=== PATIENT | female | born 1950 | race Caucasian/White ===

== ENCOUNTER → 2016-12-28 | Outpatient (CLI) | payer BC, MEDICARE ==
[~2016-12-28] MED LIST: HYDR-7 PO; META800T88 PO; [UNRECOGNIZED DRUG - CODE] PO; [UNRECOGNIZED DRUG - CODE] PO
--- NOTE | 2016-12-29 08:22 | DI ---
Indication: ITS.REASON: M25.552 PAIN IN LEFT HIP PROCEDURE: HIP LEFT 2 VIEW: Encounter: Initial Comparison: None Findings: There is no acute fracture, dislocation or malalignment identified. Mild axial joint space narrowing in the hip without osteophyte formation. Impression: No acute osseous abnormality. .
== END ==
LOC: IMA 17:15
PROVIDERS: ATTEND Family Medicine
DX: M25.552 Pain in left hip (principal)

== ENCOUNTER → 2017-01-01 | Outpatient (CLI) | payer BC, MEDICARE ==
--- NOTE | 2017-01-01 09:40 | DI ---
Indication: ITS.REASON: M54.5 LOW BACK PAIN PROCEDURE: MRI LUMBAR SPINE W/O CONTRAST: Encounter: Initial Comparison: July 10, 2014 Technique: Multiplanar multisequence MR imaging of the lumbar spine was performed without contrast. Findings: Alignment of the lumbar spine is unchanged. No acute fracture. Fatty endplate change at L4-L5. 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 Conus medullaris terminates normally at L1. The paraspinal soft tissues are unremarkable. Segmental analysis: T12-L1: Normal L1-L2: Normal L2-L3: Mild disk height loss and minor bulging without significant central canal stenosis. Degenerative facet disease without neural foraminal stenosis. L3-L4: Moderate disk height loss without focal protrusion or central canal stenosis. No significant neural foraminal narrowing. L4-L5: Moderate disk height loss without focal protrusion or central canal stenosis. Degenerative facet disease contributes to mild right neural foraminal stenosis. No significant left foraminal narrowing. L5-S1: Small central disk protrusion and degenerative facet disease without significant central canal stenosis. Mild bony right neural foraminal stenosis. No left foraminal narrowing. The prior disk protrusion at this level as decreased in size. Recommend correlation for any interval intervention. Impression: Interval improvement in the L5-S1 disk protrusion. No new or worsening central canal or neural foraminal stenosis. .
== END ==
LOC: IMA 08:01
PROVIDERS: ATTEND Family Medicine
DX: M47.896 Other spondylosis, lumbar region (principal); M51.27 Other intervertebral disc displacement, lumbosacral region